=== PATIENT | male | born 1940 | race Caucasian/White ===

== ENCOUNTER → 2019-08-14 12:57 | Outpatient (CLI) | payer MEDICARE, SELFPAY ==
--- NOTE | 2019-08-14 13:10 | MRI_ITS ---
STUDY: MRI LUMBAR SPINE WITH AND WITHOUT CONTRAST REASON FOR EXAM: Male, 79 years old. lumbar pain radiating to left side TECHNIQUE: Standardized fat and water weighted pulse sequences were obtained in the sagittal and axial planes. Dotarem IV 15ml was administered for the contrast portion of the examination. COMPARISON: None FINDINGS: T12-L1: Normal endplates. Normal disc height, hydration and morphology. Normal bilateral facet joints. Normal central canal and bilateral lateral recesses. Normal bilateral intervertebral neural foramina. Normal lumbar lordosis. Mild levoscoliosis of the lower lumbar spine with right lateral subluxation of the thoracic lumbar spine appear Normal conus medullaris that terminates at the T12/L1. L1-2: Severe loss of disc height with a mild bilobed disc protrusion and extensive Modic type II endplate changes with mild spinal stenosis and moderate bilateral neural foraminal stenosis. L2-3: Moderate bilateral facet hypertrophy. Moderate broad disc protrusion produces moderate spinal stenosis and moderate bilateral neural foraminal stenosis. L3-4: Mild broad disc protrusion produces mild spinal stenosis and mild right neural foraminal stenosis. L4-5: Mild bilobed disc protrusion produces mild spinal stenosis and moderate right neural foraminal stenosis. L5-S1: Moderate broad disc protrusion produces moderate spinal stenosis, moderate right neural foraminal stenosis, and severe left neural foraminal stenosis with effacement of the left L5 nerve root laterally. Normal visualized sacral ala. Normal visualized paraspinous soft tissue structures. There is no demonstrated abnormal enhancement. MRI/Spine Lumbar W/WO Contrast IMPRESSION: Levoscoliosis and degenerative disc disease as described above. Electronically Signed: Alden Ramires MD at 15:19 EST Tel , Service support ,
== END ==
PROVIDERS: Family Provider Family Medicine; PCP Family Medicine; Referring Provider Family Medicine; Visit Provider Family Medicine
DX: M54.5 Low back pain (principal)
CPT/HCPCS: 72158; A9575

== ENCOUNTER 2020-09-04 14:32 | Outpatient (RCR) | payer MEDICARE, SELFPAY | END 2020-09-04 23:59 | LOC: IMMUN 14:32 | PROVIDERS: PCP Family Medicine; Visit Provider Family Medicine | DX: Z23 Encounter for immunization (principal) | CPT/HCPCS: 0011A; 0012A; 91301 ==

== ENCOUNTER → 2023-12-26 | Outpatient (CLI) | payer MEDICARE, SELFPAY ==
--- NOTE | 2023-12-26 12:25 | RAD_ITS ---
STUDY: X-RAY - LEFT SHOULDER REASON FOR EXAM: Male, 83 years old. Shoulder pain. TECHNIQUE: 4 view(s) of the shoulder. COMPARISON: None. FINDINGS: Osteopenia. Moderate arthrosis of the glenohumeral joint. 5 mm in diameter calcification projected over the glenohumeral joint compatible with an intra-articular osteochondral body. Mild arthrosis of the AC joint. Normal acromion. Sclerosis and cystic changes of the humeral head. Normal soft tissues. Normal visualized pulmonary apex. 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 Small 5 mm in diameter intra-articular osteochondral body of the glenohumeral joint. Electronically Signed: Dewey Hsu MD at 13:27 EDT ,
--- NOTE | 2023-12-26 12:25 | RAD_ITS ---
STUDY: X-RAY - RIGHT SHOULDER REASON FOR EXAM: Male, 83 years old. SHOULDER PAIN TECHNIQUE: 4 views of the right shoulder. COMPARISON: None. FINDINGS: There is generalized osteopenia. There is mild glenohumeral arthrosis. There is mild acromioclavicular arthrosis. Normal acromion. Normal humeral head and visualized proximal humerus. The soft tissue structures are unremarkable. There is no demonstrated fracture. Normal visualized pulmonary apex. RAD/Shoulder min 2 Views IMPRESSION: Generalized osteopenia. Mild glenohumeral arthrosis and mild acromioclavicular arthrosis. Electronically Signed: Osman Davis MD at 13:41 EDT ,
== END | disposition home or self-care (01) ==
LOC: RAD 12:21
PROVIDERS: PCP Family Medicine; Referring Provider Anesthesiology; Visit Provider Anesthesiology
DX: M25.519 Pain in unspecified shoulder (principal)
CPT/HCPCS: 73030

== ENCOUNTER → 2024-02-01 | Outpatient (CLI) | payer MEDICARE, SELFPAY ==
--- NOTE | 2024-02-01 15:40 | RAD_ITS ---
HISTORY: Radiculopathy, lumbar region. TECHNIQUE: XR Spine Lumbar 2 or 3 Views. COMPARISON: None. FINDINGS: VERTEBRAE: Mild anterior wedging of L1 and L2. Degenerative changes the posterior elements. ALIGNMENT: No significant anterior or posterior subluxation. Moderate scoliosis. INTERVERTEBRAL DISCS: Severe intervertebral disc space narrowing with endplate change at T12-L1, L1-2, and L2-3. Moderate intervertebral disc space narrowing, endplate change, and vacuum disc phenomenon of L3-4, L4-5, and L5-S1. SOFT TISSUES: Vascular calcifications noted. RAD/Lumbar Spine 2 or 3 Views IMPRESSION: Mild chronic appearing L1 and L2 compression fractures. Scoliosis. Advanced multilevel degenerative disc disease. Electronically Signed: Arminda Hayden MD at 8:53 EDT ,
== END | disposition home or self-care (01) ==
LOC: RAD 15:36
PROVIDERS: PCP Family Medicine; Referring Provider Anesthesiology Pain Medicine; Visit Provider Anesthesiology Pain Medicine
DX: M54.16 Radiculopathy, lumbar region (principal); M54.30 Sciatica, unspecified side
CPT/HCPCS: 72100

== ENCOUNTER → 2024-09-04 | Outpatient (CLI) | payer MEDICARE, SELFPAY ==
--- NOTE | 2024-09-04 08:09 | MRI_ITS ---
PROCEDURE: SPINE LUMBAR (ROUTINE) REASON FOR EXAM: Spinal stenosis. TECHNIQUE: Lumbar spine MRI without contrast. COMPARISON: Lumbar spine series 02/01/2024. FINDINGS: Evaluation for interspaces is limited by the degree of scoliosis present. Vertebrae: Extensive Schmorl's nodes are seen throughout the lumbar spine in the inferior T12 vertebral body. Sagittal images demonstrate marked disc narrowing throughout the lumbar spine, perhaps greatest from L2 through L5. Vertebral body reactive changes are seen in the presence of advanced degenerative disc disease. Alignment: Thoracolumbar dextroscoliosis is again seen.. No spondylolysis or spondylolisthesis is se en.. Conus Medullaris: Normally positioned. T12-L1: Mild posterior facet and ligamentum flavum hypertrophy is seen. A very mild disc bulge is no norm. Mild degree of spinal canal narrowing is seen. Moderate left neural foraminal narrowing is also noted. L1-2: Ikal-kb-mmssgkay posterior facet and ligamentum flavum hypertrophy is seen. Mild vertebral bod y osteophytosis is noted. No significant degree of spinal canal stenosis. Vpdn-kw-rzqagzeh left neural foraminal narrowing is seen. L2-3: Mild left and legi-vc-tzepckht right posterior facet and ligamentum flavum hypertrophy is seen. Mild vertebral body osteophytosis is noted. No significant degree of spinal canal stenosis is seen. At least mild left neural foraminal narrowing is also noted. L3-4: Mild posterior facet and ligamentum flavum hypertrophy is seen, catpf-ydbupfs-uvak-left. Mild vertebral body osteophytosis is noted, right predominant. No significant disc bulge or herniation is seen. Tkxd-gg-ehkcehgy left and right neural foraminal narrowing is seen. L4-5: Mild vertebral body osteophytosis is noted. A slight disc bulge is seen to the left. At least mild right neural foraminal narrowing is noted. No significant spinal canal stenosis is seen. L5-S1: A tmxr-gp-ibbnqotn broad-based disc protrusion is seen. No significant spinal canal stenosis is noted. At least mild right and moderate left neural foraminal narrowing is seen. Sacrum: Visualized upper sacrum and SI joints are unremarkable. MRI/Spine Lumbar (Routine) IMPRESSION: Prominent multilevel lumbar degenerative disc disease, as described. Reading Location: [id number]
== END | disposition home or self-care (01) ==
PROVIDERS: PCP Family Medicine; Referring Provider Student in an Organized Health Care Education/Training Program; Visit Provider Student in an Organized Health Care Education/Training Program
DX: M48.062 Spinal stenosis, lumbar region with neurogenic claudication (principal)
CPT/HCPCS: 72148

== ENCOUNTER 2024-09-10 13:00 | Outpatient (RCR) | payer MEDICARE, SELFPAY ==
--- NOTE | 2024-08-27 15:03 | HP.PTEVAL ---
Patient's Visit Information Visit Information Visit Information: AGUS FAUST is a 84 year old M referred to Physical Therapy by MARCY Alonso with a diagnosis of Lumbar stenosis with neurogenic claudication. Date of Evaluation: 08/27/24 Physical Therapist: Mohan Kim, DPT, OCS, CSCS Visit Plan Frequency: 1x/Week Duration: 4-6 Weeks Plan: Pt does not wish to comfe often due to copay, willing to work at home. weekly to every other x 4-6 visits as needed for ex progression. IE HEP: HS and quad stretch 30 4x daily, trunk rotation, PT, SKC, prone prop 10x 2x/day with HO Next session chefck these and progress to mat core strength in clinic and via HEP. (cat camel, superman, prone opposites, bugs, bridges, clamshells. Subjective Subjective: Was seeing Basali at hospital for back pain. Had MRI and bone density. LBP has been present for years. Back is worn out. Got shots in back which did not help much over the last several years. Had back operation Dr. Andres 15 yrs ago which did help a little. It was a clean out. Basali sent to [facility] and they will do bone density and x rays which looked messed up. Sent for PT. Had it at [place] which did not help much. LBP: middle and out to sides 4-8/10 worse wtih sweeping floor and carrying in firewood. It gets better with sitting. Mostly comfortable in easy chair. Now and then gets R leg dysfuncjtion for a second upon standing. MRI but pt cannot afford frequent PT. Sleep is mostly OK. Typically on belly. Mornings are OK. Can stretch out on back and feel OK. Not employed. Basic ADLs: all I. Activities: spends day on TV and sleeps a little and then back to TV, cooks and cleans, cooked chili and needs to sit. Pain LBP: Pain Intensity (Out of 10): 4 Pain Intensity Range: 4 and 8 Objective Objective: Walks hunched over into pt with flat lordosis and kyphotic thoracic spine. slight pain. L/S extension is max limited, flexion is min limited and no pain, SB mod limited and no pain. HS max tight at -30 90/90 test. psoas mod tight. reflexes 2/3 patella and achilles B sensation LE WNL to gross light touch.B Strength ankles 4/5, knees 4/5 without pain, hip abd and ext 3+/5, hip flexion 4-/5, no myotomal problems. - SLump, - SLR. Very poor pelvic movement. PA pressure is painful throughout L/S. walks I, trasnfers bed and chair I, no increased pain today. Balance/Special Test Scores Oswestry Low Back Score: 15 Goals Goal 1:: I appropriate HEP to limit future problems Goal Time Frame: 4-6 Weeks Goal 2:: Pain in LB 1/10 at worst adn 70% improved/manageable Goal Time Frame: 4-6 Weeks Goal 3:: Oswestry score 7 or less Goal Time Frame: 4-6 Weeks Goal 4:: Walk at grocery store without increased pain Goal Time Frame: 4-6 Weeks Rehabilitation Potential Physical Therapy Diagnosis: Weak and immobile spine with leg tightness limiting funciton comfortably. Rehabilitation Potential: Fair Anticipated Interventions Patient/Client Instruction: Educate patient on: Condition and Plan of Care For the Purpose of:: To decrease pain, To increase ROM, To improve nutrient delivery to tissue, To improve muscle performance and motor function and To increase tolerance to activity/condition/position Therapeutic Exercise to Include: Strength training, Postural training, Flexibilty training, Passive ROM and Active ROM For the Purpose of:: To decrease pain, To increase ROM, To improve muscle performance and motor function, To increase tolerance to activity/condition/position and To improve ability of physical actions for home/community/work/leisure Thermo therapy (hot pack): Yes For the Purpose of:: To decrease pain and To increase ROM Text: Thank you for the opportunity to evaluate your patient. For Medicare and Medicare HMO plans, please review the plan of care and approve it. It will need to be FAXED BACK to us at [phone] for Medicare purposes. For Medicare only, by signing this I certify the plan of care. Please let me know if there are questions or concerns regarding this plan of care. Physician Signature: Date:
--- NOTE | 2024-11-13 12:49 | HP.PTDCNRP_ITS ---
Patient Information Patient Information: AGUS FAUST was seen in my office for initial evaluation on 08/27/24. The following Plan of Care was established for this patient: POC Established Initial Frequency: 1x/Week Initial Duration: 4-6 Weeks Anticipated Interventions Patient/Client Instruction: Educate patient on: Condition and Plan of Care For the Purpose of:: To decrease pain, To increase ROM, To improve nutrient delivery to tissue, To improve muscle performance and motor function and To increase tolerance to activity/condition/position Therapeutic Exercise to Include: Strength training, Postural training, Flexibilty training, Passive ROM and Active ROM For the Purpose of:: To decrease pain, To increase ROM, To improve muscle performance and motor function, To increase tolerance to activity/condition/position and To improve ability of physical actions for home/community/work/leisure Thermo therapy (hot pack): Yes For the Purpose of:: To decrease pain and To increase ROM Last Seen Last Seen: This patient was last seen in our office 09/10/24. Pertinent comments regarding their Physical therapy will appear below: Pt seen 2 visits of POC and was to f/u two weeks later but did not schedule or attend. At this point, it has been over two months and I will discontinue due to nonattendance. At this point I will be discontinuing this patient from physical therapy. I wo uld be happy to see this patient again in the future if found appropriate by the physician. Thank you! Mohan Kim, DPT, OCS, CSCS Balance/Gait/Functional tests Balance/Special Test Scores Oswestry Low Back Score: 15
== END 2024-09-10 19:00 | disposition home or self-care (01) ==
LOC: PT 13:00
PROVIDERS: PCP Family Medicine; Referring Provider Student in an Organized Health Care Education/Training Program; Visit Provider Student in an Organized Health Care Education/Training Program
DX: M48.062 Spinal stenosis, lumbar region with neurogenic claudication (principal)
CPT/HCPCS: 97110; 97162

== ENCOUNTER → 2024-09-20 | Outpatient (CLI) | payer MEDICARE, SELFPAY ==
--- NOTE | 2024-09-20 12:26 | BD_ITS ---
PROCEDURE: DEXA BONE DENSITY STUDY REASON FOR EXAM: M, age 84 y/o . Postmenopausal. TECHNIQUE: DEXA scan of the lumbar spine and both hips. COMPARISON: None. FINDINGS: Lumbar Spine (L1-L4): g/cm2 (1.058)/T-score (-0.3)/Z-score (1.0) findings are suggestive of normal with a low fracture risk. Left Femur Total: g/cm2 (0.635)/T-score (-2.6)/Z-score (-1.4) Left Femoral Neck: g/cm2 (0.535)/T-score (-2.9)/Z-score (-1.2) Right Femur Total: g/cm2 (0.584)/T-score (-3.0)/Z-score (-1.7) Right Femoral Neck: g/cm2 (0.500)/T-score (-3.2)/Z-score (-1.4) BD/Dexa Bone Density Study IMPRESSION: The patient is considered osteoporotic as outlined below according to [employer] (WHO) criteria with a high fracture risk. Reading Location: [facility]
== END | disposition home or self-care (01) ==
LOC: OPBD 12:25
PROVIDERS: PCP Family Medicine; Referring Provider Student in an Organized Health Care Education/Training Program; Visit Provider Student in an Organized Health Care Education/Training Program
DX: M81.0 Age-related osteoporosis without current pathological fracture (principal)
CPT/HCPCS: 77080